=== PATIENT | female | born 1980 | race Caucasian/White ===

== ENCOUNTER 2017-05-16 13:12 | Emergency (ER) | payer BC ==
[2015-11-30 05:54] VITALS: BMI 18.9
[~2017-05-16 13:12] MED LIST: IBUPROFEN600 MG PO; MINASTRIN 24 FE PO; PERCOCET 5-3251 TAB PO
[2017-05-16 13:44] LABS: APPEARANCE CLEAR (CLEAR); BILIRUBIN NEGATIVE (NEGATIVE); COLOR YELLOW (YELLOW); GLUCOSE NEGATIVE (NEGATIVE); KETONE NEGATIVE (NEGATIVE); LEUKOCYTE ESTERASE NEGATIVE (NEGATIVE); NITRITE NEGATIVE (NEGATIVE); PROTEIN NEGATIVE (NEGATIVE); UROBILINOGEN NORMAL (NORMAL)
[2017-05-16 13:49] LABS: BASOPHILS 0.5 % (0-2); EOSINOPHILS 25.7 % (0-7); HEMOGLOBIN 15.3 g/dL (12-16); LYMPHOCYTES 28.1 % (15-50); MCH 31.8 pg (26.0-34.0); MCHC 34.8 g/dL (31.0-37.0); MCV 91.5 fL (80.0-100.0); MEAN PLATELET VOLUME 9.2 fL (7.4-10.4); NEUTROPHILS 41.7 % (40-80); PLATELET COUNT 225 10x3/uL (130-400); RBC 4.81 10x6/uL (4.00-5.40); RDW 12.1 % (11.5-14.5); WBC 6.2 10x3/uL (4.8-10.8)
[2017-05-16 14:06] LABS: ALBUMIN 3.3 g/dL (3.4-5.0); ALKALINE PHOSPHATASE 46 U/L (46-116); ALT (SGPT) 16 U/L (10-68); BILIRUBIN - TOTAL 0.43 mg/dL (0.2-1.3); CALC OSMOLALITY 272 mosm/kg (275-300); CALCIUM 8.5 mg/dL (8.5-10.1); CARBON DIOXIDE 26.6 mmol/L (21.0-32.0); CHLORIDE - SERUM 103 mmol/L (98-107); CREATININE - SERUM 0.5 mg/dL (0.6-1.3); GLUCOSE 85 mg/dL (74-106); POTASSIUM - SERUM 3.7 mmol/L (3.5-5.1); PROTEIN - SERUM 6.7 g/dL (6.4-8.2); SODIUM 138 mmol/L (136-145); UREA NITROGEN 8 mg/dL (7-18); eGFR NON AFRICAN AMERICAN > 90 mL/min (90-120)
[2017-05-16 14:29] LABS: HCG - QUANTITATIVE (MATERNAL) 56276 mIU/mL
== END 2017-05-16 16:45 | disposition home or self-care (01) ==
LOC: D.ER 13:12
PROVIDERS: Family Medicine
DX: O26.891 Other specified pregnancy related conditions, first trimester (principal); Z3A.10 10 weeks gestation of pregnancy; R10.9 Unspecified abdominal pain

== ENCOUNTER → 2017-11-25 17:30 | Outpatient (CLI) | payer BC ==
[2015-11-30 05:54] VITALS: BMI 18.9
== END | disposition home or self-care (01) ==
LOC: D.LDO 17:30
DX: O26.899 Other specified pregnancy related conditions, unspecified trimester (principal); Z3A.00 Weeks of gestation of pregnancy not specified; W19.XXXA Unspecified fall, initial encounter; Y93.89 Activity, other specified; Y92.019 Unspecified place in single-family (private) house as the place of occurrence of the external cause

== ENCOUNTER 2017-12-01 13:44 | Inpatient (IN) | payer BC ==
[~2017-12-01] VITALS: Ht 154.9 cm; Wt 60.8 kg
[2017-12-01] MEDS ORDERED: VALTREX500 MG PO (18:48)
[2017-12-01] MEDS ORDERED: PRENATAL COMPLE1 TAB PO (18:49)
[2017-12-01 19:03] VITALS: BP 124/79; Ht 154.9 cm; Wt 60.8 kg
[2017-12-01 19:35] LABS: APPEARANCE CLEAR (CLEAR); BILIRUBIN NEGATIVE (NEGATIVE); COLOR YELLOW (YELLOW); GLUCOSE NEGATIVE (NEGATIVE); KETONE NEGATIVE (NEGATIVE); NITRITE NEGATIVE (NEGATIVE); PROTEIN NEGATIVE (NEGATIVE); UROBILINOGEN NORMAL (NORMAL)
[2017-12-01 19:37] LABS: HEMATOCRIT 33.8 % (36.0-48.0); HEMOGLOBIN 11.3 g/dL (12-16); MCH 29.6 pg (26.0-34.0); MCHC 33.4 g/dL (31.0-37.0); MCV 88.5 fL (80.0-100.0); MEAN PLATELET VOLUME 9.8 fL (7.4-10.4); RBC 3.82 10x6/uL (4.00-5.40); RDW 13.2 % (11.5-14.5); WBC 8.6 10x3/uL (4.8-10.8)
[2017-12-02] VITALS (8 sets, daily range): BP systolic 127–140; BP diastolic 60–84
[2017-12-02 21:52] LABS: HEMATOCRIT 32.7 % (36.0-48.0); HEMOGLOBIN 10.9 g/dL (12-16); LYMPHOCYTES 8.7 % (15-50); MCH 29.3 pg (26.0-34.0); MCHC 33.3 g/dL (31.0-37.0); MCV 87.9 fL (80.0-100.0); MEAN PLATELET VOLUME 8.4 fL (7.4-10.4); NEUTROPHILS 86.1 % (40-80); PLATELET COUNT 231 10x3/uL (130-400); RBC 3.72 10x6/uL (4.00-5.40); RDW 13.4 % (11.5-14.5)
[2017-12-02 21:53] LABS: WBC 13.5 10x3/uL (4.8-10.8)
[2017-12-03 00:41] VITALS: BP 126/75
[2017-12-03 03:59] VITALS: BP 112/70
[2017-12-03 05:16] LABS: RAPID PLASMA REAGIN Non Reactive (Non Reactive)
[2017-12-03 07:08] VITALS: BP 123/72
[2017-12-03 08:13] LABS: HEMATOCRIT 30.6 % (36.0-48.0); HEMOGLOBIN 10.3 g/dL (12-16); LYMPHOCYTES 11.7 % (15-50); MCH 29.7 pg (26.0-34.0); MCHC 33.7 g/dL (31.0-37.0); MCV 88.2 fL (80.0-100.0); MEAN PLATELET VOLUME 8.3 fL (7.4-10.4); PLATELET COUNT 254 10x3/uL (130-400); RBC 3.47 10x6/uL (4.00-5.40); RDW 13.7 % (11.5-14.5); WBC 11.8 10x3/uL (4.8-10.8)
[2017-12-03 14:15] VITALS: BP 112/65
[2017-12-03 20:03] VITALS: BP 136/85
[2017-12-03 20:47] VITALS: BP 118/76
[2017-12-04 00:13] VITALS: BP 119/74
[2017-12-04 04:18] VITALS: BP 121/71
[2017-12-04 08:00] VITALS: BP 135/74
[2017-12-04] MEDS ORDERED: PERCOCET 10/3251 TA1 PO (09:37)
[2017-12-04] MEDS ORDERED: IBUPROFEN600 MG PO (09:38)
== END 2017-12-04 11:45 | disposition home or self-care (01) | DRG 766 ==
LOC: D.LD 13:44
PROVIDERS: Obstetrics & Gynecology
PROC: 0UB70ZZ Excision of Bilateral Fallopian Tubes, Open Approach (ICD-10-PCS; 2017-12-02)
PROC: 10D00Z1 Extraction of Products of Conception, Low, Open Approach (ICD-10-PCS; principal; 2017-12-02 13:11)
DX: O98.52 Other viral diseases complicating childbirth (principal); B00.9 Herpesviral infection, unspecified; Z3A.39 39 weeks gestation of pregnancy; Z37.0 Single live birth; O62.1 Secondary uterine inertia; Z30.2 Encounter for sterilization; Z30.09 Encounter for other general counseling and advice on contraception; O43.193 Other malformation of placenta, third trimester